=== PATIENT | male | born 2000 | race Hispanic/Latino ===

== ENCOUNTER 2022-09-03 15:12 | Emergency (ER) | payer OTHER ==
[~2022-09-03] VITALS: Ht 172.7 cm; Wt 90.9 kg
[2022-09-03 15:21] VITALS: BP 128/84
[2022-09-03 15:30] VITALS: BP 120/80
[2022-09-03 15:58] LABS: HEMATOCRIT 44.2 % (39.0-50.0); HEMOGLOBIN 15.1 g/dl (14.0-18.0); IMMATURE GRANULOCYTES 0.1 % (0.0-5.0); MEAN CELL VOLUME 90.8 fL CALC (80.0-100.0); MEAN CORPUSCULAR HGB CONC 34.2 g/dL CAL (32.0-36.0); NEUT# 8.75 thou/uL (1.82-7.42); RED BLOOD COUNT 4.87 mill/uL (4.70-6.10); RED CELL DISTRI WIDTH 12.2 % (11.5-15.5)
[2022-09-03 16:04] LABS: ALBUMIN 4.8 g/dL (3.2-5.0); ALKALINE PHOSPHATASE 112 u/l (38-126); ANION GAP 15 (6-22 (CALC)); BILIRUBIN, TOTAL 0.5 mg/dL (0.0-1.4); BUN 9 mg/dL (9-20); BUN/CREATININE RATIO 9 (12-20 (CALC)); CARBON DIOXIDE 24 mmol/l (22-30); CHLORIDE 104 mmol/l (95-108); GFR FOR AFR.AMER. > 60 ML/MIN (>=60 (CALC)); GFR OTHER RACES > 60 ML/MIN (>=60 (CALC)); POTASSIUM 4.4 mmol/l (3.5-5.1); SGOT/AST 53 u/l (17-59); SODIUM 138 mmol/l (137-146); TOTAL PROTEIN 8.7 g/dL (6.3-8.2)
[2022-09-03] MEDS ORDERED: KEFLEX500 MG PO (16:33)
[2022-09-03] MEDS ORDERED: NAPROXEN500 MG PO (16:33)
[2022-09-03 17:37] VITALS: BP 120/80
== END 2022-09-03 19:12 | disposition home or self-care (01) | DRG 603 ==
LOC: ED 15:12
PROVIDERS: Nurse Practitioner
DX: L03.115 Cellulitis of right lower limb (principal)